=== PATIENT | male | born 1965 | race Caucasian/White ===

== ENCOUNTER 2017-03-31 07:02 | Day surgery (SDC) | payer OTHER ==
[2017-03-31] MEDS ORDERED: D5 LR 1000 ML 1,000 ML IV ONE (07:09)
[2017-03-31] MEDS ORDERED: DIPRIVAN VIAL 20 ML ONE (09:12)
[2017-03-31 10:16] VITALS: BP 120/90
== END 2017-03-31 09:50 | disposition home or self-care (01) ==
LOC: SURG1 07:02
PROVIDERS: ATTEND Internal Medicine Gastroenterology
PROC: 0DJD8ZZ Inspection of Lower Intestinal Tract, Via Natural or Artificial Opening Endoscopic (ICD-10-PCS; principal; 2017-03-31 09:00)
DX: Z12.11 Encounter for screening for malignant neoplasm of colon (principal); Z80.0 Family history of malignant neoplasm of digestive organs; K57.30 Diverticulosis of large intestine without perforation or abscess without bleeding; K64.0 First degree hemorrhoids
CPT/HCPCS: A4217; J3490; J7120